=== PATIENT | female | born 2005 | race Caucasian/White ===

== ENCOUNTER 2023-11-14 12:28 | Outpatient (CLI) | payer OTHER, MEDICAID, SELFPAY | END 2023-11-14 12:29 | disposition home or self-care (01) | PROVIDERS: PCP Obstetrics & Gynecology; Visit Provider Registered Nurse | DX: Z13.220 Encounter for screening for lipoid disorders (principal); Z13.1 Encounter for screening for diabetes mellitus; Z13.29 Encounter for screening for other suspected endocrine disorder; Z13.21 Encounter for screening for nutritional disorder | CPT/HCPCS: 80061; 82306; 82947; 84443 ==

== ENCOUNTER 2024-03-21 10:24 | Outpatient (CLI) | payer OTHER, MEDICAID, SELFPAY | END 2024-03-21 10:25 | disposition home or self-care (01) | LOC: NFLDREF 03-22 01:59 | PROVIDERS: PCP Obstetrics & Gynecology; Referring Provider Obstetrics & Gynecology; Visit Provider Obstetrics & Gynecology | DX: R30.0 Dysuria (principal) | CPT/HCPCS: 87086 ==

== ENCOUNTER 2024-12-03 12:11 | Outpatient (CLI) | payer OTHER, MEDICAID, SELFPAY | END 2024-12-03 12:12 | disposition home or self-care (01) | PROVIDERS: PCP Obstetrics & Gynecology; Visit Provider Registered Nurse | DX: Z12.4 Encounter for screening for malignant neoplasm of cervix (principal); Z83.49 Family history of other endocrine, nutritional and metabolic diseases | CPT/HCPCS: 84443; 87624; 87625; 88141; 88142 ==